=== PATIENT | female | born 1945 | race Caucasian/White ===

== ENCOUNTER 2018-05-20 11:20 | Day surgery (SDC) | payer OTHER ==
[2018-05-20] MEDS ORDERED: DIAZEPAM 5 MG TAB PO ONE (11:25)
[2018-05-20] MEDS ORDERED: BACITRACIN IRRIGATION/NS 50,000 UNITS/1,000 ML BTL IRR ONE (11:25)
[2018-05-20] MEDS ORDERED: diphenhydrAMINE 25 MG CAP PO ONE (11:25)
[2018-05-20] MEDS ORDERED: ceFAZolin 2 GM/DEXTROSE 100 ML IV ONE (11:25)
[2018-05-20] MEDS ORDERED: NS 1,000 ML IV ONE (11:25)
[2018-05-20 12:07] LABS: PLATELET COUNT 220 10^3/uL (150-400)
[2018-05-20 12:20] LABS: INR 0.99 (0.83-1.16); PROTIME(PATIENT) 13.3 SEC (12.0-15.0)
[2018-05-20] MEDS ORDERED: BUPIVACAINE 0.5% 30 ML SDV ONE (12:24)
[2018-05-20] MEDS ORDERED: fentaNYL 100 MCG/2 ML INJ ONE (12:24)
[2018-05-20] MEDS ORDERED: MIDAZOLAM 2 MG/2 ML VIAL ONE (12:24)
[2018-05-20] MEDS ORDERED: LIDO/EPI 1% **for epidural** 30 ML SDV ONE (12:24)
[2018-05-20] MEDS ORDERED: LIDOCAINE 1% 300 MG/30 ML SDV ONE (12:24)
--- NOTE | 2018-05-20 13:23 | PDPROPOC ---
Sedation Plan of Care Sedation Plan of Care: vital signs stable, mental status noted, patient educated of risks, benefits, alternatives, patient can tolerate sedation ASA Classification: ASA 1 Planned drugs: fentanyl, midazolam Mallampati Score: Class 1 Mallampati Reference Image: Patient passed 3-3-2 rule?: Yes
--- NOTE | 2018-05-20 13:23 | PDHPUP ---
History & Physical Update H&P update statement: This history and physical update is based on an assessment of the patient which was completed after admission or registration (within 24 hours), but prior to the surgery/procedure. H&P update: H&P reviewed & patient examined, no change in patient's condition since H&P completed
--- NOTE | 2018-05-20 14:34 | CPIP ---
DATE OF PROCEDURE: 05/20/2018 INDICATIONS: The patient is a pleasant 72-year-old female who has a history of dual-chamber pacemake r implanted back in 1997, with a pacemaker generator change that was performed in February of 2008. She has a history of sick sinus syndrome. Her current device is at elective replacement indicators. PROCEDURE: Pacemaker generator change. TECHNIQUE: Following informed consent and in the fasting state, the patient was brought to the [facility] catheterization laboratory. The left chest was prepped and draped in the usual sterile fashion. 2% lidocaine was infiltrated into the skin over lying the previously placed device. Using the #10 blade, a 4 cm incision was made. The pacemaker pocket was identified, which was opened sharply. The existing device was then delivered from the field. The leads were disconnected from t he header. Both leads were independently interrogated. The pacemaker serial numbers were then ident ified and corrected in the medical record. At this point, the pocket was irrigated with antibiotic-c ontaining solution. The new device was then brought to the field both leads were affixed to the head er according to channel man guidelines. The pacemaker was then placed in the pocket and the pocket closed in 3 layers initially with 2 layers of interrupted suture using 2-0 and 3-0 Vicryl and finally running Stratafix for the skin. Steri-Strips and a dry dressing were applied. COMPLICATIONS: None DEVICE INFORMATION: The existing leads were implanted August 11, 1998. The right atrial lead is a Medtronic 4092, 45 cm lead, serial #[id number]. The right ventricular lead is a Medtronic 4092, 45 cm lead, serial #[id number]. In the atrium, sensed P waves were 3.4 mV with a capture threshold of 0 .5 V at 0.4 msec and a lead impedance of 526 ohms. In the right ventricle, sensed R-waves were 4.4 m V with a capture threshold of 1.1 V at 0.4 msec and a lead impedance of 487 ohms. The newly implante d pacemaker is a [employer] Edora 8 DRT, model #[id number], serial #[id number]. DISPOSITION: The patient will be transferred to the [facility] and discharged home later today. /[id number]/MODL
== END 2018-05-20 15:41 | disposition home or self-care (01) ==
LOC: FCATH 11:20
PROVIDERS: ATTEND Internal Medicine Cardiovascular Disease
PROC: 0JH60PZ Insertion of Cardiac Rhythm Related Device into Chest Subcutaneous Tissue and Fascia, Open Approach (ICD-10-PCS; principal; 2018-05-20)
PROC: 0JPT0PZ Removal of Cardiac Rhythm Related Device from Trunk Subcutaneous Tissue and Fascia, Open Approach (ICD-10-PCS; principal; 2018-05-20)
DX: Z45.010 Encounter for checking and testing of cardiac pacemaker pulse generator [battery] (principal); I49.5 Sick sinus syndrome; Z86.010 Personal history of colon polyps; E78.5 Hyperlipidemia, unspecified
CPT/HCPCS: C1785; J0690; J2250; J3010

== ENCOUNTER → 2018-07-25 | Outpatient (CLI) | payer OTHER | LOC: FIMAGING 09:29 | PROVIDERS: ATTEND Internal Medicine Geriatric Medicine | DX: Z12.31 Encounter for screening mammogram for malignant neoplasm of breast (principal); Z13.820 Encounter for screening for osteoporosis; M81.0 Age-related osteoporosis without current pathological fracture; E28.39 Other primary ovarian failure; Z78.0 Asymptomatic menopausal state ==